=== PATIENT | male | born 1960 | race Caucasian/White ===

== ENCOUNTER → 2016-11-19 | Outpatient (CLI) | payer MEDICAID | LOC: FIMAGING 17:54 | PROVIDERS: ATTEND Internal Medicine | DX: N50.3 Cyst of epididymis (principal); N43.3 Hydrocele, unspecified ==

== ENCOUNTER → 2016-12-18 | Outpatient (CLI) | payer MEDICAID | LOC: FIMAGING 07:49 | PROVIDERS: ATTEND Psychiatry & Neurology Neurology | DX: G35 Multiple sclerosis (principal) ==